=== PATIENT | male | born 1970 | race Caucasian/White ===

== ENCOUNTER 2018-04-05 08:13 | Observation (INO) | payer BC ==
[~2018-04-05] VITALS: Ht 177.8 cm; Wt 94.3 kg
[~2018-04-05 08:13] MED LIST: CYCLOBENZAPRINE10 MG PO; GLUCOPHAGE1000 MG PO; MAG-OXIDE400 MG PO; POTASSIUM CHLO20 ME1 PO; PROPRANOLOL HC120 MG PO; PROPRANOLOL HCL40 MG PO
[2018-04-05] MEDS ORDERED: GLIMEPIRIDE4 MG PO (08:33)
[2018-04-05] MEDS ORDERED: NORCO 5-325 TA1 EACH PO (08:34)
[2018-04-05] MEDS ORDERED: AMLODIPINE BESY10 MG PO (08:34)
--- NOTE | 2018-04-05 11:01 | NUR ---
ADMIT PATIENT. LR STARTED. SCDS PLACED ON PATEINT. PEPCID GIVEN. ADMIT COMPLETE. UPDATE ON DAY SURGERY WAS GIVEN. WILL BE 1 HR WAIT. PATIENT STATING MILD PAIN IN STERNUM AREA. PATIENT STATING HE IS OKAY AT THIS TIME. PATIENT DOES REPORT THAT HE DID NOT TAKE ANY CHRONIC MEDICATONS FROM HOME. HE UPDATED DR. BOUCHER IN ED.
--- NOTE | 2018-04-05 11:20 | NUR ---
patient assisted to the day surg. stretcher. patient doing well. lr and straight tubing given to nurse. patient voided before laying on stretcher.
--- NOTE | 2018-04-05 12:43 | NUR ---
04/05/18 1243 Cecelia Aguilar 1227 PT ARRIVED IN PACU SLEEPY WITH NO C/O'S. 1230 COUGHING UP PHLEGM. NO C/O'S NAUSEA. 1240 OXYGEN REMOVED. C/O SORE THROAT 12/16.
[2018-04-05] MEDS ORDERED: SUCRALFATE1 GM/10 ML PO (12:52)
[2018-04-05] MEDS ORDERED: PANTOPRAZOLE SO40 MG PO (12:53)
--- NOTE | 2018-04-05 13:20 | NUR ---
PATIENT BACK FROM SURGERY. VITALS TAKEN. PATIENT ABLE TO AMBULATE BACK TO BED. IN ROOM. ASSESSMENT COMPLETE. PATEINT MADE CLEAR LIQUID DIET. TOLERATING SIPS OF WATER AT THIS TIME. UPDATED WITH NEW ORDERS AND PLAN OF CARE.
--- NOTE | 2018-04-05 14:04 | NUR ---
PATIENT TOLERATING CLEAR LIQUID DIET. ORDERED LUNCH THAT IS FULL LIQUID DIET. IN ROOM. PATIENT REPORTS THAT HE IS PASSING FLATUS. NO OTHER NEES AT THIS TIME. BEDSIDE TRAY SET UP FOR LUNCH
--- NOTE | 2018-04-05 14:44 | NUR ---
PATIENT SITTING UP IN BED. TOLERATING FULL LIQUID DIET. PATIENT STATING PAIN 3-4/10. NORCO 1 TAB GIVEN.
[2018-04-05] MEDS ORDERED: INDERAL LA60 MG PO (15:41)
--- NOTE | 2018-04-06 09:15 | HP ---
[facility] [address] [place], [place] [address] Signed ADMISSION DATE: 04/05/2018 REASON FOR ADMISSION: Esophageal obstruction due to food impaction. 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 He has had longstanding reflux symptoms and some gastroparesis, for which I have seen him in the distant past. Earlier this month, he underwent a LINX Procedure in [place], [place] at [facility]. He noted that he had cessation of his reflux type symptoms, but a small amount of dysphagia on occasion. Yesterday, he was cooking for his [place] and had a piece of asparagus, which caused a food impaction. He feels an obstruction in the area of the epigastric area at the xiphoid. Despite fluids and so forth, he is unable to swallow the food foreign body. He has had some salivation, but not excessive. He presented to the emergency room and was evaluated by Dr. Donohue. He was noted to have normal CBC and electrolytes. His blood sugar is somewhat up at 191. He seems not to had a passage of the food impaction despite administration of glucagon by the emergency room physician, Dr. Donohue. REVIEW OF SYSTEMS: He denies any shortness of breath or chest pain. He has no other complaints at this time. PHYSICAL EXAMINATION: GENERAL: Pleasant white man who looks to be in no distress particularly. HEENT: He has a full schultz. Trachea is midline. CHEST: Shows normal respiratory excursion. VASCULAR: Pulses regular. ABDOMEN: Nondistended and soft. EXTREMITIES: Show no clubbing, cyanosis, or edema. LABORATORIES: CBC and Chem profile reviewed within reasonable limits. ASSESSMENT AND PLAN: The patient has food impaction in the distal esophagus in part related to a LINX Electronically Signed By: CHRISTA BOUCHER MD 04/06/18 0915 PATIENT NAME: GRAZYNA VERDUGO HISTORY AND PHYSICAL DATE OF : 68 REPORT #: [id number] PHYSICIAN: CHRISTA BOUCHER MD PCP: Johanny PIEDRA MD REPORT IS CONFIDENTIAL AND NOT TO BE RELEASED WITHOUT AUTHORIZATION [facility] [address] [place], [place] [address] Signed procedure. The magnetic bracelet around the distal esophagus certainly can prevent reflux symptoms, but obviously the extent of the magnet's force is not allowing for passage of food beyond the distal esophagus. Whether or not he has a distal esophageal stricture associated with this or secondary edema related to the procedure, which was only 2 weeks ago was uncertain. I am not sure if he had much in the way of instruction regarding dietary restrictions in the early postoperative period. The risks of bleeding, infection, and perforation related to upper endoscopy and attempts to clear the esophagus have been reviewed with him. He understands and wished to proceed. Although I am not hotel operation manager, he has requested me to assist him with this and I am willing to do so. MD ROSANGELA Crenshaw/MONSTER /[id number] Copies: ~ Electronically Signed By: CHRISTA BOUCHER MD 04/06/18 0915 PATIENT NAME: GRAZYNA VERDUGO MCKENZIE HISTORY AND PHYSICAL DATE OF : [birth year] REPORT #: [id number] PHYSICIAN: CHRISTA BOUCHER MD PCP: Johanny PIEDRA MD REPORT IS CONFIDENTIAL AND NOT TO BE RELEASED WITHOUT AUTHORIZATION
--- NOTE | 2018-04-06 09:15 | OR ---
[facility] [address] [place], [place] [address] Signed DATE OF OPERATION: 04/05/2018 SURGEON: Christa Boucher MD PREOPERATIVE DIAGNOSES: 1. Esophageal obstruction due to food impaction. 2. Recent LINX anti-reflux procedure in ([place], [place] in early March). POSTOPERATIVE DIAGNOSES: 1. Impacted meat at distal esophagus without evidence of stricture. 2. Prepyloric ulcer (unexpected). 3. CLOtest negative at 20 minutes post procedure. PROCEDURE: 1. Esophagogastroduodenoscopy with biopsy. 2. Removal of food impaction with short over-tube and snare baskets and 3-prong grasper. ANESTHESIA: General endotracheal, Christa Gee CRNA. 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 He was noted at one time to have gastric dysmotility problems as well. He was previously a patient of Dr. Barnes. In early March, he underwent a LINX procedure in [place], [place]. He tells me he has had no specific dietary recommendations postoperatively. He was cooking food on a barbecue with his family yesterday and swallowed a bit of asparagus and some meat and immediately had what he recognized as esophageal obstruction. He has not had esophageal obstruction in the past, though he has had some dysphagia in the past 2 weeks since the procedure was completed. He has had persistent hypersalivation and clinically has obstructive esophagus with food impaction. On that basis, I have recommended upper endoscopy. The risks of bleeding, infection, perforation, and so forth were reviewed with him. He understands wished to proceed. FINDINGS: Food impacted in the distal esophagus was probably asparagus and a fair amount of matter fact. There was no sign of stricture, ulceration, neoplasm or varices associated with this. Once cleared, the stomach and duodenum were examined and he had a prepyloric ulcer about a cm in size. I am told he had preoperative upper endoscopy and I doubt the Electronically Signed By: CHRISTA BOUCHER MD 04/06/18 0915 PATIENT NAME: GRAZYNA VERDUGO OPERATIVE REPORT DATE OF : 68 REPORT #: [id number] PHYSICIAN: CHRISTA BOUCHER MD PCP: Johanny BARNES MD REPORT IS CONFIDENTIAL AND NOT TO BE RELEASED WITHOUT AUTHORIZATION [facility] [address] [place], [place] [address] Signed ulcer was present at that time. Biopsies were taken for H pylori. CLOtest was negative. The duodenum was normal. The GE junction did not show hiatal hernia proper. Biopsies were taken in the midesophagus to assess for eosinophilic esophagitis, but there was no evidence of typical stigmata of that (feline esophagus, etc.) DESCRIPTION OF PROCEDURE: The patient was brought to the endoscopy suite and placed in a supine position, given a general endotracheal anesthetic. After conferring with the countersinker as to the safest way regarding his airway and so on. He was allowed to remain in the supine position. An Olympus video upper endoscope was passed in the hypopharynx and easily passed in the esophagus. The proximal esophagus was decompressed of some saliva and secretions and in the distal most esophagus was obvious food impaction. This appeared to be the tip of the asparagus spear, though that is not entirely certain. A three prong grasper was used to grasp some of the material, but it was easily macerated and sequential removal of portions of it were undertaken as best could be done. Clearly, this was not going to be adequate, therefore, a Carbone net was used to incorporate more of the impacted food. Reintroduction of the scope was undertaken as needed. Ultimately, a rather large bolus that was noted and obviously would be likely the main bulk of the obstruction was noted and therefore a red rubber catheter of appropriate size was cut and slipped over the endoscope itself to provide a good suction ring. The scope was introduced once again and the offending bolus grasped and suctioned and withdrawn. It fell off from the hypopharynx requiring use of a Bayron forceps to explant, but it was rather sizable probably 3 cm or so in length. Reintroduction of the scope allowed for clearance of the hypopharynx. The scope was advanced to the esophagus once again and by this point, nearly total clearance of the esophagus was noted. Irrigation was undertaken. The scope was gently passed into the stomach through the GE junction at the area of the LINX procedure. The stomach was evaluated and rugal folds appeared normal. Retroflexed view showed a flap valve that looked as though it had undergone surgical manipulation. There was no sign of hiatal hernia proper. The scope was advanced at the antrum where a prepyloric ulcer was noted. The scope was then passed in the duodenum, which was normal. The scope was withdrawn once again to the prepyloric ulcer and biopsy taken of the ulceration. CLOtest biopsies were obtained of the antrum of the stomach. The scope was withdrawn to the distal esophagus. Biopsies taken of the distal esophagus, though there was no evidence of stricture, neoplasm, or varices. Withdrawal of scope to the midesophagus allowed for biopsy of the midesophagus, though there was no stigmata of eosinophilic esophagitis. Careful withdrawal of scope, the remaining portion showed no sign of retained food or secretions. The hypopharynx was carefully examined again showing no sign of retained material. The patient was ultimately extubated and transferred to recovery room in good condition having suffered no complications. Electronically Signed By: CHRISTA BOUCHER MD 04/06/18 0915 PATIENT NAME: GRAZYNA VERDUGO OPERATIVE REPORT DATE OF : [birth year] REPORT #: [id number] PHYSICIAN: CHRISTA BOUCHER MD PCP: Johanny BARNES MD REPORT IS CONFIDENTIAL AND NOT TO BE RELEASED WITHOUT AUTHORIZATION [address] [address] Signed MD ROSAGNELA Crenshaw/MONSTER /[id number] cc: MD Kai Ballard DO Copies: Johanny BARNES MD, JAMES ALAN DO ~ Electronically Signed By: CHRISTA BOUCHER MD 04/06/18 0915 PATIENT NAME: GRAZYNA VERDUGOAND OPERATIVE REPORT DATE OF : 68 REPORT #: [id number] PHYSICIAN: CHRISTA BOUCHER MD PCP: Johanny BARNES MD REPORT IS CONFIDENTIAL AND NOT TO BE RELEASED WITHOUT AUTHORIZATION
== END 2018-04-05 15:20 | disposition home or self-care (01) ==
LOC: ED 08:13 → MS 08:15 → ED 09:50 → MS 09:51
PROVIDERS: ADMIT Surgery
PROC: 0DB28ZX Excision of Middle Esophagus, Via Natural or Artificial Opening Endoscopic, Diagnostic (ICD-10-PCS; 2018-04-05)
PROC: 0DB78ZX Excision of Stomach, Pylorus, Via Natural or Artificial Opening Endoscopic, Diagnostic (ICD-10-PCS; 2018-04-05)
PROC: 0DC38ZZ Extirpation of Matter from Lower Esophagus, Via Natural or Artificial Opening Endoscopic (ICD-10-PCS; principal; 2018-04-05 11:15)
DX: T18.128A Food in esophagus causing other injury, initial encounter (principal); E11.9 Type 2 diabetes mellitus without complications; I10 Essential (primary) hypertension; K25.9 Gastric ulcer, unspecified as acute or chronic, without hemorrhage or perforation; Z79.84 Long term (current) use of oral hypoglycemic drugs; Z79.891 Long term (current) use of opiate analgesic; Z79.899 Other long term (current) drug therapy; Z88.5 Allergy status to narcotic agent
CPT/HCPCS: 80053; 85025; 96374; 96375; 99285; G0378; J0330; J1610; J2060; J2704; J3010

== ENCOUNTER → 2018-10-06 | Emergency (ER) | payer BC ==
[~2018-10-06] VITALS: Ht 177.8 cm; Wt 88.5 kg
[~2018-10-06] MED LIST changes: +AMLODIPINE BESY10 MG PO; +CARAFATE1 GM PO; +GLIMEPIRIDE4 MG PO; +HYDROXYZINE HCL25 MG PO; +INDERAL LA60 MG PO; +NORCO 5-325 TA1 EACH PO; +PANTOPRAZOLE SO40 MG PO; +SUCRALFATE1 GM/10 ML PO
== END ==
LOC: ED 19:47
DX: S13.4XXA Sprain of ligaments of cervical spine, initial encounter (principal); S20.229A Contusion of unspecified back wall of thorax, initial encounter; E11.9 Type 2 diabetes mellitus without complications; I10 Essential (primary) hypertension; Z88.5 Allergy status to narcotic agent; Z79.899 Other long term (current) drug therapy; Z79.84 Long term (current) use of oral hypoglycemic drugs; W17.89XA Other fall from one level to another, initial encounter
CPT/HCPCS: 70450; 71260; 72125; 80053; 82150; 82550; 83690; 85025; 86850; 86900; 86901; 96374; 96375; 99284-25; G0480; J1170; J2405; Q9967

== ENCOUNTER 2020-04-20 16:44 | Emergency (ER) | payer OTHER, BC ==
[~2020-04-20] VITALS: Ht 180.3 cm; Wt 93.0 kg
[2020-04-20] MEDS ORDERED: LOSARTAN POTASS50 MG PO (17:19)
[2020-04-20] MEDS ORDERED: REPAGLINIDE1 MG PO (17:20)
[2020-04-20] MEDS ORDERED: JANUVIA100 MG PO (17:20)
== END 2020-04-20 17:59 | disposition home or self-care (01) ==
LOC: ED 16:44
DX: S43.491A Other sprain of right shoulder joint, initial encounter (principal); E11.9 Type 2 diabetes mellitus without complications; I10 Essential (primary) hypertension; Z79.899 Other long term (current) drug therapy; W19.XXXA Unspecified fall, initial encounter
CPT/HCPCS: 99283

== ENCOUNTER 2020-05-11 07:10 | Day surgery (SDC) | payer BC ==
[~2020-05-11] VITALS: Ht 177.8 cm; Wt 93.0 kg
[~2020-05-11 07:10] MED LIST changes: +JANUVIA100 MG PO; +LOSARTAN POTASS50 MG PO; +REPAGLINIDE1 MG PO
[2020-05-11] MEDS ORDERED: PREDNISONE5 MG PO (07:39)
[2020-05-11] MEDS ORDERED: PREDNISONE20 MG PO (07:39)
[2020-05-11] MEDS ORDERED: CEFDINIR300 MG PO (07:39)
--- NOTE | 2020-05-11 09:04 | NUR ---
05/11/20 0904 Rashmi Dacosta 0841-PATIENT ARRIVED TO PACU ON 2L NC RR EVEN. PATIENT DROWSY EYES CLOSED. AROUSES TO VERBAL STIMULI DENIES PAIN OR NAUSEA. IVF INFUSING 0902-GLUCOSE CHECKED 171.
--- NOTE | 2020-05-11 16:13 | OR ---
[facility] [address] [place], [place] [address] Signed DATE OF OPERATION: 05/11/2020 SURGEON: Christa Boucher MD PREOPERATIVE DIAGNOSES: 1. Colon screening. 2. Episodic diarrhea alternating with constipation. POSTOPERATIVE DIAGNOSIS: Normal-appearing colon and ilium except for small polyp at 40 cm (excised). PROCEDURE: 1. Total colonoscopy to cecum with intubation of ileum and biopsies of ileum, cecum, and rectum. 2. Cold morcellation excision of polyp at sigmoid. ANESTHESIA: Intravenous sedation, fentanyl 100 mcg and Versed 9 mg. 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 He was seen by me in August anticipating screening colonoscopy based on age. The patient suffered a significant upper respiratory infection in the winter, which was rather prolonged in its recovery that combined with a viral pandemic delayed any plan for colonoscopy. The patient has had no blood per rectum and has no family history of colon cancer, but does have episodic diarrhea alternated with constipation. He has undergone a Linx procedure for reflux disease. He is admitted to undergo colonoscopy at this point, understand the risks of bleeding, infection, and perforation. FINDINGS: The prep was adequate. Complete colonoscopy was undertaken to the cecum and intubation of the ileum was accomplished. The ileum appeared normal as did the colonic mucosa generally. There was a small polyp at 40 cm, which was excised with cold morcellation technique. The remaining area was normal. Biopsies were taken of the rectum, cecum and ilium to assess for occult colitis. DESCRIPTION OF PROCEDURE: The patient was brought to the endoscopy suite and placed in lateral decubitus position Electronically Signed By: CHRISTA BOUCHER MD 05/11/20 1613 PATIENT NAME: GRAZYNA VERDUGO OPERATIVE REPORT DATE OF : 68 REPORT #: [id number] PHYSICIAN: CHRISTA BOUCHER MD PCP: BARBARA MACIAS PA-C REPORT IS CONFIDENTIAL AND NOT TO BE RELEASED WITHOUT AUTHORIZATION [facility] [address] [place], [place] [address] Signed given intravenous sedation to the point of slurred speech and nystagmus. Digital rectal examination was normal. An Olympus video colonoscope was passed in the rectum and manipulated throughout the colon ultimately intubating the cecum. The ileocecal valve and appendiceal orifice were normal. With various manipulations, the ileum was able to be intubated. The ileal mucosa was normal. Biopsies were taken nevertheless. The scope was withdrawn and examination of the cecum showed the mucosa to be normal. Biopsies obtained there as well. The scope was carefully withdrawn and examination throughout showed no sign of abnormality until approximately 40 cm from the anal verge where a small polyp was noted, most likely it was adenomatous, narrow band imaging confirmed this. This was excised with cold morcellation technique. Further withdrawal of scope showed no other abnormality. Retroflexed view of the rectum was normal. Biopsies were obtained there to assess for microscopic colitis. The scope was removed and the patient was taken to the recovery room in good condition. CONCLUDING DIAGNOSIS: Normal colon except for a small polyp at 40 cm. PLAN: Recommend a repeat colonoscopy in 5 years sooner if clinically indicated. He will return to the ongoing care of Barbara Macias. We will review his pathology report to assure there is no sign of microscopic colitis to account for his episodic symptoms. Christa Boucher MD JM/MODL /[id number] cc: Barbara Macias PA-C Copies: BARBARA MACIAS PA-C ~ Electronically Signed By: CHRISTA BOUCHER MD 05/11/20 1613 PATIENT NAME: GRAZYNA VERDUGO MCKENZIE OPERATIVE REPORT DATE OF : [birth year] REPORT #: [id number] PHYSICIAN: CHRISTA BOUCHER MD PCP: BARBARA MACIAS PA-C REPORT IS CONFIDENTIAL AND NOT TO BE RELEASED WITHOUT AUTHORIZATION
--- NOTE | 2020-05-12 16:08 | PATH ---
[facility] [address] [facility] [place] [place] [address] Signed SPECIMEN(S): A ILEUM SPECIMEN(S): B CECUM SPECIMEN(S): C COLON POLYP AT 30 CM SPECIMEN(S): D RECTUM SPECIMEN SOURCE: A. ILEUM B. CECUM C. COLON POLYP AT 30 CM D. RECTUM CLINICAL HISTORY: Colon screening/colonoscopy. MICROSCOPIC DESCRIPTION: Histologic sections of all submitted blocks are examined by light microscopy. These findings, together with the gross examination, support the pathologic diagnosis. FINAL PATHOLOGIC DIAGNOSIS: A. Mucosa, ileum, biopsy: - Small-intestinal mucosa with normal villous architecture, no microscopic pathologic diagnosis. B. Mucosa, cecum, biopsy: - No microscopic pathologic diagnosis. C. Mucosa, colon at 30 cm, biopsy: - Surface features suggestive, but not entirely diagnostic, of hyperplastic polyp. D. Mucosa, rectum, biopsy: - Small area of intramucosal hemorrhage, otherwise no microscopic pathologic diagnosis. RJ:[facility]:C2NR GROSS DESCRIPTION: Four specimens are received in four containers, labeled "SW." A. The specimen, labeled "SW, 1," and designated on the requisition "ileum," is received in formalin and consists of two post soft tissue fragments that measure 0.3 cm in greatest dimension. The specimen is entirely submitted in cassette (A1). B. The specimen, labeled "SW, 2," and designated on the requisition "cecum," is received in formalin and consists of two post soft tissue fragments that measure 0.3 cm in greatest dimension. The PATIENT NAME: GRAZYNA VERDUGO PATHOLOGY DATE OF : [birth year] REPORT #: [id number] PHYSICIAN: REYES GALLEGO PCP: NNAMDI JOSEPH PA-C REPORT IS CONFIDENTIAL AND NOT TO BE RELEASED WITHOUT AUTHORIZATION [facility] [address] [place], [place] [address] Signed specimen is entirely submitted in cassette (B1). C. The specimen, labeled "SW, 3," and designated on the requisition "colon polyp at 30 cm," is received in formalin and consists of four post soft tissue fragments that measure 0.3 cm in greatest dimension. The specimen is entirely submitted in cassette (C1). D. The specimen, labeled "SW, 4," and designated on the requisition "rectum," is received in formalin and consists of one post soft tissue fragment that measures 0.4 cm in greatest dimension. The specimen is entirely submitted in cassette (D1). AT (under the direct supervision of a pathologist) The Gross Description was prepared using a voice recognition system. The report was reviewed for accuracy; however, sound-alike word errors, addition and/or deletions may occur. If there is any question about this report, please contact Client Services. PERFORMING LABORATORY: The technical component was performed by [facility] [address] (Aeronautical Engineer: Tresa Demarco MD; CLIA# [id number]). Professional interpretation was performed by [facility], [address] [address] (CLIA# [id number]). Diagnostician: Chito Ledesma MD Pathologist Electronically Signed 05/12/2020 Copies: ~ PATIENT NAME: GRAZYNA VERDUGO PATHOLOGY DATE OF : [birth year] REPORT #: [id number] PHYSICIAN: REYES PATHOLOGY PCP: NNAMDI JOSEPH PA-C REPORT IS CONFIDENTIAL AND NOT TO BE RELEASED WITHOUT AUTHORIZATION
== END 2020-05-11 09:40 | disposition home or self-care (01) ==
LOC: DS 07:10 → OPS 07:10 → DS 13:00
PROVIDERS: Surgery
PROC: 0DBN8ZZ Excision of Sigmoid Colon, Via Natural or Artificial Opening Endoscopic (ICD-10-PCS; 2020-05-11)
PROC: 0DBP8ZX Excision of Rectum, Via Natural or Artificial Opening Endoscopic, Diagnostic (ICD-10-PCS; 2020-05-11)
PROC: 0DBB8ZX Excision of Ileum, Via Natural or Artificial Opening Endoscopic, Diagnostic (ICD-10-PCS; 2020-05-11)
PROC: 0DBH8ZX Excision of Cecum, Via Natural or Artificial Opening Endoscopic, Diagnostic (ICD-10-PCS; principal; 2020-05-11 08:30)
DX: K63.5 Polyp of colon (principal); K21.0 Gastro-esophageal reflux disease with esophagitis; E11.9 Type 2 diabetes mellitus without complications; I10 Essential (primary) hypertension; Z88.5 Allergy status to narcotic agent; Z91.040 Latex allergy status; Z79.899 Other long term (current) drug therapy; Z79.84 Long term (current) use of oral hypoglycemic drugs
CPT/HCPCS: 99153; G0500; J2250; J3010; J7121

== ENCOUNTER 2020-05-29 06:30 | Day surgery (SDC) | payer BC ==
[~2020-05-29] VITALS: Ht 177.8 cm; Wt 90.7 kg
[~2020-05-29 06:30] MED LIST changes: +CEFDINIR300 MG PO; +PREDNISONE20 MG PO; +PREDNISONE5 MG PO
[2020-05-29] MEDS ORDERED: CARAFATE1 GM PO (06:47)
--- NOTE | 2020-05-29 08:04 | NUR ---
05/29/20 0803 Maria A Rodriguez 0800 PATIENT ARRIVES TO PACU AWAKE,BUT DROWSY. RESP EVEN AND UNLABORED, NC AT 2LITERS, TURNED OFF ON ARRIVAL TO PACU. ROOM AIR SATS >93%.
--- NOTE | 2020-05-29 12:25 | NUR ---
PT HAS INTENSE ABDOMINAL PAIN AND HOPES EGD WILL GIVE SOME ANSWERS. PT REQUESTED PRAYER, GAVE ENCOURAGEMENT AND BLESSING WELL
--- NOTE | 2020-06-02 18:28 | OR ---
[facility] [address] [place], [place] [address] Signed DATE OF OPERATION: 05/29/2020 SURGEON: Christa Boucher MD PREOPERATIVE DIAGNOSES: 1. Persistent right upper abdominal pain. 2. History of LINX procedure for reflux disease. POSTOPERATIVE DIAGNOSES: 1. Bulbar duodenal ulcer. 2. Initial CLOtest negative. PROCEDURE: Esophagogastroduodenoscopy with biopsy. ANESTHESIA: Intravenous sedation, fentanyl 100 mcg and Versed 4 mg. 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 He is known well to me from the past. He does have diabetes mellitus and has had some degree of gastroparesis documented in the past. More recently, he has had an LYNX procedure elsewhere for reflux disease, which was helpful to him. He has developed right upper abdominal pain. Biliary workup in the past has been negative and most recent workup also negative as regards to ultrasound. He does have family history of biliary disease. He has been taking Carafate, which has been variably beneficial. He is admitted at this time to undergo upper endoscopy to better characterize the problem, specifically to assess if there is peptic disease or erosion of the lynx device or other abnormality that may account for his symptoms. FINDINGS: The esophagus was entirely normal. I saw no clinical evidence of erosion and no evidence really of the device itself. Stomach appeared normal. CLOtest was negative at 15 minutes post procedure. He did have a bulbar duodenal ulcer, which was not bleeding. Most likely this is the source of his problem. PROCEDURE: The patient was brought to the endoscopy suite given topical lidocaine spray anesthesia and placed in lateral decubitus position. He was given intravenous sedation to the point of slurred speech and nystagmus with full cardiopulmonary monitoring. A bite Electronically Signed By: CRHISTA BOUCHER MD 06/02/20 1828 PATIENT NAME: GARZYNA VERDUGO OPERATIVE REPORT DATE OF : 68 REPORT #: [id number] PHYSICIAN: CHRISTA BOUCHER MD PCP: NNAMDI JOSEPH PA-C REPORT IS CONFIDENTIAL AND NOT TO BE RELEASED WITHOUT AUTHORIZATION [facility] [address] [place], [place] [address] Signed block was placed. An Olympus video upper endoscope was passed into the hypopharynx. The vocal cords appeared normal. The scope was advanced to the esophagus without problem. Throughout its length, it was entirely normal. Scope was advanced to the stomach, which was insufflated with air. Rugal folds appeared normal as did the antrum and the pylorus. The scope was passed through the pylorus into the duodenum. The second and third portions appeared normal. Biopsies were obtained there to assess for celiac disease. The scope was withdrawn and subtle finding initially of the hypertrophied mucosa of the duodenum was noted with further inspection and close inspection and duodenal ulcer was identified. It was not deep, but was definitely present. Photographs were taken. Biopsies obtained of the edge of the ulcer as well though the chance of malignancy is almost nil. Narrow band imaging was used as well. The scope was withdrawn to the stomach and biopsies taken of the antrum for both MONICA and pathologic testing. Retroflexed view showed a good flap valve overall. The scope was withdrawn to the distal esophagus and biopsies were obtained, the mucosa appeared normal. Careful withdrawal showed no other findings. The patient was taken to the recovery room in good condition. CONCLUDING DIAGNOSIS: Duodenal ulcer, normal certainly accounting for his symptoms. PLAN: Recommend PPI, 20 mg of Prilosec b.i.d. x10 days and then daily after that. To continue with Carafate 1 g p.o. q.i.d. on empty stomach. He will return to see me in approximately 4 weeks in the office. I expected the ulcer will heal promptly. MD ROSANGELA Crenshaw/MODL /[id number] Copies: ~ Electronically Signed By: CHRISTA BOUCHER MD 06/02/20 1828 PATIENT NAME: GRAZYNA VERDUGO OPERATIVE REPORT DATE OF : 68 REPORT #: [id number] PHYSICIAN: CHRISTA BOUCHER MD PCP: NNAMDI JOSEPH PA-C REPORT IS CONFIDENTIAL AND NOT TO BE RELEASED WITHOUT AUTHORIZATION
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
== END 2020-05-29 08:30 | disposition home or self-care (01) ==
LOC: OPS 06:30 → DS 06:30 → OPS 06:45 → DS 06:45 → OPS 08:30
PROVIDERS: Surgery
PROC: 0DB78ZX Excision of Stomach, Pylorus, Via Natural or Artificial Opening Endoscopic, Diagnostic (ICD-10-PCS; 2020-05-29)
PROC: 0DB38ZX Excision of Lower Esophagus, Via Natural or Artificial Opening Endoscopic, Diagnostic (ICD-10-PCS; 2020-05-29)
PROC: 0DB98ZX Excision of Duodenum, Via Natural or Artificial Opening Endoscopic, Diagnostic (ICD-10-PCS; principal; 2020-05-29 06:45)
DX: K29.50 Unspecified chronic gastritis without bleeding (principal); K26.3 Acute duodenal ulcer without hemorrhage or perforation; K20.9 Esophagitis, unspecified; K21.9 Gastro-esophageal reflux disease without esophagitis; E11.9 Type 2 diabetes mellitus without complications; Z91.040 Latex allergy status; Z88.5 Allergy status to narcotic agent; Z79.899 Other long term (current) drug therapy; Z79.84 Long term (current) use of oral hypoglycemic drugs
CPT/HCPCS: 99153; G0500; J2250; J3010; J7121

== ENCOUNTER 2020-08-15 13:48 | Emergency (ER) | payer OTHER, BC ==
[~2020-08-15] VITALS: Ht 177.8 cm; Wt 86.2 kg
[2020-08-15] MEDS ORDERED: ATORVASTATIN CA10 MG PO (13:49)
[2020-08-15] MEDS ORDERED: OMEPRAZOLE20 MG PO (13:49)
[2020-08-15] MEDS ORDERED: GLIMEPIRIDE4 MG PO (13:50)
[2020-08-15] MEDS ORDERED: PROMETHAZINE-C473 ML PO (13:50)
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
--- NOTE | 2020-08-16 14:13 | EKG ---
[facility] [address] [facility] [place] [address] Signed Normal sinus rhythm Normal ECG Confirmed by ELENA ALVARENGA MD ([id number]) on 08/16/2020 2:12:49 PM Electronically Signed By: ELENA ALVARENGA MD 08/16/20 1413 PATIENT NAME: GRAZYNA VERDUGO Electrocardiogram DATE OF : 68 PHYSICIAN: ELENA ALVARENGA MD REPORT #: [id number] REPORT IS CONFIDENTIAL AND NOT TO BE RELEASED WITHOUT AUTHORIZATION
== END 2020-08-15 15:50 | disposition short-term general hospital (02) ==
LOC: ED 13:48
DX: I63.9 Cerebral infarction, unspecified (principal); R47.02 Dysphasia; G83.9 Paralytic syndrome, unspecified; V43.92XA Unspecified car occupant injured in collision with other type car in traffic accident, initial encounter; E11.9 Type 2 diabetes mellitus without complications; I10 Essential (primary) hypertension; Z91.040 Latex allergy status; Z79.899 Other long term (current) drug therapy
CPT/HCPCS: 70450; 70496; 70498; 71045; 71250; 71260; 72125; 74176; 74177; 80053; 82150; 82550; 83605; 83690; 85025; 85610; 85730; 86850; 86900; 86901; 93005; 93010; 99285-25; G0480; J1170; J2405; J2997; J3010; J7030; Q3014; Q9967